=== PATIENT | female | born 1980 | race Caucasian/White ===

== ENCOUNTER → 2017-08-14 | Outpatient (CLI) | payer SELFPAY | LOC: COL.LAB 13:45 | DX: E11.9 Type 2 diabetes mellitus without complications (principal) ==

== ENCOUNTER → 2018-08-02 | Outpatient (CLI) | payer SELFPAY ==
[2018-08-02 20:10] LABS: BASO # 0.1 (0.0-0.2); BASO % 0.8 % (0.0-2.0); EOS # 0.3 (0.0-0.7); EOS % 2.1 % (0-4.0); GRAN # 8.8 (1.4-6.5); GRAN % 66.9 % (42.2-75.2); HEMATOCRIT 40.1 % (37.0-47.0); HEMOGLOBIN 13.2 g/dl (12.5-16.0); LYMPH # 3.1 (1.2-3.4); LYMPH % 23.8 % (20.0-51.0); MEAN CELL VOLUME 84 fl (80.0-100.0); MEAN CORPUSCULAR HEMOGLOBIN 28 pg (27.0-31.0); MEAN CORPUSCULAR HGB CONC 33 g/dl (33.0-37.0); MEAN PLATELET VOLUME 11.1 fl (7.4-10.4); MONO # 0.8 (0.1-0.6); PLATELET COUNT 359 K/mm3 (130-400); RED BLOOD COUNT 4.75 M/mm3 (4.10-5.30); REDCELL DISTRIBUTION WIDTH-CV 13.2 % (11.5-14.5)
[2018-08-02 20:24] LABS: IRON,SERUM 31 ug/dL (35-150)
[2018-08-02 20:32] LABS: ERYTHROCYTE SEDIMENTATION RATE 13 mm/hr (0-20)
[2018-08-03 19:25] LABS: TOTAL IRON BINDING CAPACITY 403 ug/dL (265-497)
== END ==
LOC: ZCOL.LAB 19:19 → ZLAB.FHCC 19:19
DX: Z01.89 Encounter for other specified special examinations (principal)

== ENCOUNTER 2018-09-06 08:06 | Day surgery (SDC) | payer OTHER ==
[~2018-09-06] VITALS: Ht 157.5 cm; Wt 92.4 kg
[2018-09-06 08:42] VITALS: BP 126/93; PULSE 77; TEMP 97.2
[2018-09-06] MEDS ORDERED: MULTI VITAMINS1 TAB PO (08:56)
[2018-09-06] MEDS ORDERED: NATURAL IRON65 MG PO (08:57)
[2018-09-06] MEDS ORDERED: OMEGA-3 1000 MG1 CAP PO (08:57)
[2018-09-06] MEDS ORDERED: PROBIOTIC ACID1 EAC3 PO (08:58)
[2018-09-06 09:35] VITALS: BP 126/93; PULSE 65; TEMP 97.7
--- NOTE | 2018-09-06 09:35 | NUR ---
Patient brought back to [facility]. Alert and oriented. Able to ambulated to chair without difficulty. Vital signs obtained, WNL. States she would like water and crackers. Denies any pain or nausea at this time. Anthony at bedside. Call scott within reach, will continue to monitor.
[2018-09-06 09:50] VITALS: BP 116/82; PULSE 68
--- NOTE | 2018-09-06 09:50 | NUR ---
Vital signs obtained WNL. Denies any discomfort. Tolerating food and drink well, would like more water. All saftey maintained at this time. Will continue to monitor.
[2018-09-06 10:05] VITALS: BP 109/74; PULSE 57
--- NOTE | 2018-09-06 10:05 | NUR ---
Patient states she is ready to go home once Dr. Mullen is able to speak with her. Vital signs stable. Tolerating food and drink well. Will continue to monitor.
--- NOTE | 2018-09-06 10:20 | NUR ---
Discharge instructions reviewed with patient and . Verbalized understanding. IV removed per MD orders. Tolerated well with minimal bleeding. Patient to get dressed.
--- NOTE | 2018-09-06 10:37 | NUR ---
Patient wheeled down to lobby. To be driven home by Anthony.
== END 2018-09-06 10:37 | disposition home or self-care (01) ==
LOC: SDCO 08:06
DX: D12.8 Benign neoplasm of rectum (principal); K64.2 Third degree hemorrhoids; E11.9 Type 2 diabetes mellitus without complications; I10 Essential (primary) hypertension; D64.9 Anemia, unspecified
CPT/HCPCS: J2250; J3010

== ENCOUNTER → 2018-11-24 | Outpatient (CLI) | payer OTHER ==
[~2018-11-24] MED LIST: MULTI VITAMINS1 TAB PO; NATURAL IRON65 MG PO; OMEGA-3 1000 MG1 CAP PO; PROBIOTIC ACID1 EAC3 PO
[2018-11-24 18:23] LABS: HEMATOCRIT 43.9 % (37.0-47.0); HEMOGLOBIN 14.4 g/dl (12.5-16.0); MEAN CELL VOLUME 87 fl (80.0-100.0); MEAN CORPUSCULAR HEMOGLOBIN 29 pg (27.0-31.0); MEAN CORPUSCULAR HGB CONC 33 g/dl (33.0-37.0); MEAN PLATELET VOLUME 10.6 fl (7.4-10.4); PLATELET COUNT 275 K/mm3 (130-400); RED BLOOD COUNT 5.06 M/mm3 (4.10-5.30); REDCELL DISTRIBUTION WIDTH-CV 13.1 % (11.5-14.5)
== END ==
LOC: ZLAB.FHCC 17:18 → COL.LAB 17:18
DX: D64.9 Anemia, unspecified (principal)

== ENCOUNTER → 2019-05-19 | Outpatient (CLI) | payer SELFPAY ==
[2019-05-19 13:03] LABS: ALBUMIN 4.4 gm/dL (3.5-5.0); BILIRUBIN,TOTAL 0.2 mg/dL (0.0-1.0); CALCIUM 9.2 mg/dL (8.4-10.2); CREATININE, serum 0.95 (0.52-1.25); POTASSIUM 3.7 mmol/L (3.4-5.0)
[2019-05-19 13:33] LABS: THYROID STIMULATING HORMONE 1.83 uIU/mL (0.465-4.680)
== END ==
LOC: COL.LAB 09:45
PROVIDERS: Nurse Practitioner Family
DX: I10 Essential (primary) hypertension (principal)

== ENCOUNTER 2020-07-18 18:03 | Emergency (ER) | payer OTHER ==
[~2020-07-18] VITALS: Ht 157.5 cm; Wt 101.4 kg
[~2020-07-18 18:03] MED LIST changes: +MEDROL 4MG DOSPA4 MG PO
[2020-07-18 18:27] VITALS: TEMP 98
[2020-07-18 20:34] LABS: BASO # 0.1 (0.0-0.2); BASO % 0.6 % (0.0-2.0); EOS # 0.1 (0.0-0.7); EOS % 1.1 % (0-4.0); GRAN # 9.3 (1.4-6.5); GRAN % 73.3 % (42.2-75.2); HEMATOCRIT 39.3 % (37.0-47.0); HEMOGLOBIN 12.6 g/dl (12.5-16.0); LYMPH # 2.5 (1.2-3.4); LYMPH % 19.6 % (20.0-51.0); MEAN CELL VOLUME 86 fl (80.0-100.0); MEAN CORPUSCULAR HEMOGLOBIN 28 pg (27.0-31.0); MEAN CORPUSCULAR HGB CONC 32 g/dl (33.0-37.0); MEAN PLATELET VOLUME 10.7 fl (7.4-10.4); MONO # 0.6 (0.1-0.6); PLATELET COUNT 310 K/mm3 (130-400); RED BLOOD COUNT 4.59 M/mm3 (4.10-5.30); REDCELL DISTRIBUTION WIDTH-CV 12.9 % (11.5-14.5)
[2020-07-18 20:46] LABS: ALANINE AMINOTRANSFERASE 33 U/L (4-34); ALBUMIN 4.3 gm/dL (3.5-5.0); ALKALINE PHOSPHATASE 59 U/L (50-136); ANION GAP 7 mmol/L (7-16); AST,SGOT 41 U/L (15-37); BILIRUBIN,TOTAL 0.4 mg/dL (0.0-1.0); BLOOD UREA NITROGEN 18 mg/dL (7-17); CARBON DIOXIDE 25 mmol/L (22-30); CHLORIDE 105 mmol/L (98-107); CREATINE KINASE 70 U/L (30-135); CREATININE, serum 0.87 (0.52-1.25); GLUCOSE 125 mg/dL (74-106); POTASSIUM 3.9 mmol/L (3.4-5.0); SODIUM 137 mmol/L (137-145); TOTAL PROTEIN 7.8 gm/dL (6.4-8.2)
[2020-07-18 20:58] LABS: TROPONIN-I < 0.012 ng/mL (0.000-0.035)
[2020-07-18 22:24] VITALS: BP 143/90; PULSE 81
== END 2020-07-18 22:24 | disposition home or self-care (01) ==
LOC: COL.ER 18:03
PROVIDERS: Emergency Medicine
DX: I10 Essential (primary) hypertension (principal); R00.2 Palpitations; R11.2 Nausea with vomiting, unspecified
CPT/HCPCS: J2405; J7030